=== PATIENT | male | born 1960 | race Caucasian/White ===

== ENCOUNTER 2019-03-19 15:35 | Emergency (ER) | payer OTHER ==
[2019-03-19 15:55] VITALS: BP 150/89; PULSE 102; TEMP 98.4; BMI 21.7
--- NOTE | 2019-03-19 16:28 | PDOC ---
History of Present Illness - General Chief Complaint: Laceration Stated Complaint: LACERATION Time Seen by Provider: 03/19/19 15:45 - History of Present Illness Initial Comments: 03/19/19 16:23 59 M with h/o churg-yolanda presents to ED with laceration to R babb. Pt states that he inadvertently kicked a large stone with his babb. Pt denies falling or sustaining any other injuries. Pt proceeded to wash out his wound in the shower but came to the ED when he found the bleeding would not stop. Pt states last tetanus shot was 3 years ago. Denies any pain with ambulation. Past History - Past Medical History Allergies/Adverse Reactions: Allergies Allergy/AdvReac Type Severity Reaction Status Date / Time vancomycin Allergy Rash Verified 03/19/19 15:42 Home Medications: Ambulatory Orders Calcium/Magnesium/Vit D3 [Calcium 500 mg Tablet] 1 each PO DAILY 03/13/16 Prednisone 5 mg PO DAILY 03/13/16 Cholecalciferol (Vitamin D3) [Vitamin D3] 2,000 unit PO DAILY 03/19/19 Fluticasone/Salmeterol [Advair 250-50 Diskus] 1 each IH BID 03/19/19 Asthma: Yes COPD: No Other medical history: VASCULITIS - Surgical History Lung Surgery: Yes (Lung Bx 2011) - Immunization History TDAP Vaccination: Yes (03/13/2016) - Suicide/Smoking/Psychosocial Hx Smoking History: Never smoked Hx Alcohol Use: No Drug/Substance Use Hx: No Substance Use Type: None Review of Systems - Review of Systems Comments:: 03/19/19 16:28 "GENERAL/CONSTITUTIONAL: No fever or chills. No weakness. HEAD, EYES, EARS, NOSE AND THROAT: No change in vision. No ear pain or discharge. No sore throat. CARDIOVASCULAR: No chest pain, no shortness of breath, no loss of consciousness RESPIRATORY: No cough, wheezing, or hemoptysis. GASTROINTESTINAL: No nausea, vomiting, diarrhea or constipation. GENITOURINARY: No dysuria, frequency, or change in urination. MUSCULOSKELETAL: No joint or muscle swelling or pain. No neck or back pain. SKIN: + laceration to R babb NEUROLOGIC: No vertigo, no change in strength/sensation. ENDOCRINE: No increased thirst. No abnormal weight change. HEMATOLOGIC/LYMPHATIC: No anemia, easy bleeding, or history of blood clots. ALLERGIC/IMMUNOLOGIC: No hives or skin allergy. *Physical Exam - Vital Signs Last Vital Signs Temp Pulse Resp BP Pulse Ox 98.4 F 102 H 18 150/89 98 03/19/19 15:38 03/19/19 15:38 03/19/19 15:38 03/19/19 15:38 03/19/19 15:38 - Physical Exam Comments: 03/19/19 16:28 "GENERAL: Awake, alert, and fully oriented, in no acute distress. HEAD: No signs of trauma EYES: PERRLA, EOMI, sclera anicteric, conjunctiva clear ENT: Auricles normal inspection, hearing grossly normal, nares patent, oropharynx clear without exudates. Moist mucosa NECK: Nontender, no stepoffs, Normal ROM, supple, no lymphadenopathy, JVD, or masses LUNGS: Breath sounds equal, clear to auscultation bilaterally. No wheezes, and no crackles HEART: Regular rate and rhythm, normal S1 and S2, no murmurs, rubs or gallops ABDOMEN: Soft, nontender, normoactive bowel sounds. No guarding, no rebound. No masses EXTREMITIES: Normal range of motion, no edema. No clubbing or cyanosis. No cords, erythema, or tenderness NEUROLOGICAL: Cranial nerves II through XII intact. 5/5 strength and sensation in all extremities, Normal speech, normal gait, normal cerebellar function SKIN: +4cm curved laceration to anterior R babb Procedures - Laceration/Wound Repair Right Anterior Leg Wound Length: 2.6 to 5.0 cm Wound Explored: clean Wound's Depth, Shape: superficial Irrigated w/ Saline: Yes Anesthesia: 1% Lidocaine Wound Repaired With: Sutures Suture Size/Type: 4:0 Number of Sutures: 7 Sterile Dressing Applied: Yes Medical Decision Making - Medical Decision Making 03/19/19 16:28 59 M with laceration to R babb. No evidence of bony injury on exam. - Wound irrigated - Lac repair 03/19/19 17:02 Wound repaired with 7 sutures Pt is well appearing, with normal vitals. Clinically stable for DC at this time. I discussed the physical exam findings, ancillary test results and final diagnoses with the patient. I answered all of the patient's questions. The patient was satisfied with the care received and felt comfortable with the discharge plan and treatment plan. The patient agrees to follow up with the primary care physician within 24-72 hours. *DC/Admit/Observation/Transfer Diagnosis at time of Disposition: Laceration - Discharge Dispostion Disposition: HOME Condition at time of disposition: Good - Referrals Referrals: Eliel Cortez MD [Primary Care Provider] - - Patient Instructions Printed Discharge Instructions: DI for Laceration Repair Additional Instructions: You have 7 sutures. Keep your wound covered and avoid direct sunlight to reduce scarring. Your sutures need to be removed in 7-10 days. Please return to the ER or go to your primary doctor to have them removed. If you experience any redness, swelling, drainage, bleeding, or any other concerning symptoms, return to the ER immediately. - Post Discharge Activity - Attestations Physician Attestion: 03/19/19 16:30 I, Dr. Mick Mota MD, attest that this document has been prepared under my direction and personally reviewed by me in its entirety. I further attest, that it accurately reflects all work, treatment, procedures and medical decision -making performed by me.
== END 2019-03-19 17:13 | disposition home or self-care (01) ==
LOC: FER 15:35
PROC: 0HQHXZZ Repair Right Upper Leg Skin, External Approach (ICD-10-PCS; principal; 2019-03-19)
DX: S81.811A Laceration without foreign body, right lower leg, initial encounter (principal); W22.8XXA Striking against or struck by other objects, initial encounter; Y93.89 Activity, other specified; Y92.89 Other specified places as the place of occurrence of the external cause; J45.909 Unspecified asthma, uncomplicated
CPT/HCPCS: 99282-25

== ENCOUNTER 2019-03-28 07:50 | Emergency (ER) | payer OTHER ==
[2019-03-28 07:55] VITALS: BP 130/85; PULSE 70; TEMP 98; BMI 20.5
--- NOTE | 2019-03-28 08:12 | PDOC ---
Suture Removal/Wound Check HPI - History of Present Illness Chief Complaint: Suture/Staple Removal(Here) Stated Complaint: SUTURE Time Seen by Provider: 03/28/19 07:57 History Source: Yes: Patient Exam Limitations: Yes: No Limitations Treated at: [facility] ED Date of Last ED visit: 03/19/19 - Previous ED Treatment Type of procedure performed on last visit: Yes: Laceration Repair - Onset of Previous Treatment Date of Occurence: 03/19/19 Comment:: 03/28/19 08:10 59y M presnting for suture removal no redness/swelling, fever/chills no complaints exam: wound - eschar well healed without surrounding erythema/induration, discharge 7 sutures removed in total eschar was disrupted as some sutures were burried. will have pt continue putting bacitrcin over wound for the next few days return precautions were discussed for worsening erythema/swelling Past History - Past Medical History Allergies/Adverse Reactions: Allergies Allergy/AdvReac Type Severity Reaction Status Date / Time vancomycin Allergy Rash Verified 03/28/19 07:51 Home Medications: Ambulatory Orders Calcium/Magnesium/Vit D3 [Calcium 500 mg Tablet] 1 each PO DAILY 03/13/16 Prednisone 5 mg PO DAILY 03/13/16 Cholecalciferol (Vitamin D3) [Vitamin D3] 2,000 unit PO DAILY 03/19/19 Fluticasone/Salmeterol [Advair 250-50 Diskus] 1 each IH BID 03/19/19 Asthma: Yes COPD: No - Surgical History Lung Surgery: Yes (Lung Bx 2011) - Immunization History TDAP Vaccination: Yes (03/13/2016) - Suicide/Smoking/Psychosocial Hx Smoking History: Never smoked Hx Alcohol Use: No Drug/Substance Use Hx: No Substance Use Type: None *Physical Exam - Vital Signs Last Vital Signs Temp Pulse Resp BP Pulse Ox 98 F 70 16 130/85 99 03/28/19 07:51 03/28/19 07:51 03/28/19 07:51 03/28/19 07:51 03/28/19 07:51 *DC/Admit/Observation/Transfer Diagnosis at time of Disposition: Visit for suture removal - Discharge Dispostion Disposition: HOME Condition at time of disposition: Improved Decision to Admit order: No - Referrals - Patient Instructions Printed Discharge Instructions: DI for Suture Removal Additional Instructions: Use bacitracin as your eschar was disrupted by the suture removal. if there is any redness, swelling, pain or other concerns, return for evaluation. Print Language: [place] - Post Discharge Activity
== END 2019-03-28 08:14 | disposition home or self-care (01) ==
LOC: FER 07:50
DX: Z48.02 Encounter for removal of sutures (principal)
CPT/HCPCS: 99281-25